=== PATIENT | male | born 1975 | race Caucasian/White ===

== ENCOUNTER 2016-12-23 20:06 | Emergency (ER) | payer BC ==
[2016-12-23] MEDS ORDERED: Sodium Chloride 0.9% 1,000 ML IV ONE (20:27)
[2016-12-23] MEDS ORDERED: Tamsulosin 0.4 MG Cap.ER PO ONE (20:28)
[2016-12-23 21:17] LABS: CHLORIDE,CL 103 mmol/L (98-107); SODIUM,NA 139 mmol/L (136-145)
[2016-12-23] MEDS ORDERED: Levofloxacin/Dextrose 5%-Water 750 MG in Premix Bag 1 BAG IV ONE (21:23)
--- NOTE | 2016-12-23 21:47 | EDM.PDOC ---
ED HISTORY OF PRESENT ILLNESS - General Chief Complaint: Fever Stated Complaint: Fever, chills, urinary postvoid dribbling Time Seen by Provider: 12/23/16 20:18 Source of Information: Reports: Patient History Limitations: Reports: No limitations - History of Present Illness INITIAL COMMENTS - FREE TEXT/NARRATIVE: Patient states that he started having fever and chills about a week ago. It has not gotten any better and continued to cause him more fatigue. He is currently in the middle of calving season and has not gotten much rest. He has not been exposed to the flu or get a flu vaccine. This season. He has also been complaining of post void urinary dribbling for the past week as well. He denies all other urinary complaints. Symptom Onset Date: 12/16/16 Severity: moderate Context, General: Reports: Activity, Exercise Associated Symptoms (General): Reports: fever/chills, malaise, weakness - Related Data Allergies/ADRs: Allergies Allergy/AdvReac Type Severity Reaction Status Date / Time No Known Allergies Allergy Verified 12/23/16 20:39 Home Meds: Home Meds Levofloxacin [Levaquin] 750 mg PO DAILY #6 tablet 12/23/16 [Rx] Tamsulosin [Flomax] 0.4 mg PO PCBREAKFAST #30 cap.er 12/23/16 [Rx] Past Medical History - Past Health History Medical/Surgical History: Denies Medical/Surgical History Social & Family History - Tobacco Use Smoking Status *Q: Never Smoker - Caffeine Use Caffeine Use: Reports: Soda ED ROS GENERAL - Review of Systems Review Of Systems: ROS reveals no pertinent complaints other than HPI. Constitutional: Reports: fever, malaise, weakness, fatigue HEENT: Reports: No symptoms Respiratory: Reports: Shortness of Breath Cardiovascular: Reports: No symptoms Endocrine: Reports: fatigue GI/Abdominal: Reports: No symptoms : Reports: incontinence Musculoskeletal: Reports: shoulder pain, arm pain, muscle pain (injury from getting his bicep torn after a cow ran through a gate he was holding onto.), muscle stiffness Skin: Reports: bruising Neurological: Reports: No Symptoms Psychiatric: Reports: No symptoms Hematologic/Lymphatic: Reports: no symptoms Immunologic: Reports: no symptoms ED EXAM, GENERAL - Physical Exam Exam: See Below Exam Limited By: No limitations General Appearance: alert, WD/WN, no apparent distress Nose: normal inspection, normal mucosa, no blood Throat/Mouth: Normal inspection, Normal lips, Normal teeth, Normal gums, Normal oropharynx, Normal voice, No airway compromise Head: atraumatic, normocephalic Neck: normal inspection, supple, non-tender, full range of motion Respiratory/Chest: no respiratory distress, lungs clear, normal breath sounds, no accessory muscle use, chest non-tender Cardiovascular: normal peripheral pulses, regular rate, rhythm, no edema, no gallop, no JVD, no murmur, no rub Peripheral Pulses: 2+: radial (L), radial (R) GI/Abdominal: normal bowel sounds, soft, non tender, no organomegaly, no distention, no abnormal bruit, no mass Back Exam: normal inspection, full range of motion, NT Extremities: normal inspection, normal range of motion, non-tender, no pedal edema, normal capillary refill Neurological: alert, oriented, CN II-XII intact, normal cognition, normal gait, normal reflexes, no motor/sensory deficits Psychiatric: normal affect, normal mood Skin Exam: Warm, Dry, Intact Lymphatic: no adenopathy Course - Vital Signs Last Recorded V/S: Last Vital Signs Temp 37.7 C 12/23/16 20:15 Pulse 111 H 12/23/16 20:15 Resp 16 12/23/16 20:15 BP 132/73 12/23/16 20:15 Pulse Ox 96 12/23/16 20:15 - Orders/Labs/Meds Orders: Active Orders 24 hr Category Date Time Status CXR [Chest 2V] [CR] Stat Exams 12/23/16 20:59 Ordered Levofloxacin/Dextrose 5%-Water [Levaquin in D5W 750 MG/ Med 12/23/16 21:23 Ordered 150 ML] 750 mg Premix Bag 1 bag IV ONETIME Medication Orders Levofloxacin/Dextrose 750 mg/ (Premix) 150 mls @ 100 mls/hr IV ONETIME ONE Stop: 12/23/16 22:52 Last Admin: 12/23/16 21:39 Dose: 100 mls/hr Labs: Laboratory Tests 12/23/16 12/23/16 12/23/16 Range/Units 20:20 20:35 20:35 WBC 17.4 H (4.0-10.0) x10^3/uL RBC 4.90 (4.5-6.0) x10^6/uL Hgb 14.8 (14.0-18.0) g/dL Hct 42.1 (40.0-52.0) % MCV 85.9 (78.0-93.0) fL MCH 30.2 (26.0-32.0) pg MCHC 35.2 (32.0-36.0) g/dL RDW Coeff of Bella 13.1 (10.0-15.0) % Plt Count 295 (130-400) x10^3/uL Neut % (Auto) 81.9 H (50.0-80.0) % Lymph % (Auto) 9.1 L (25.0-50.0) % [place] % (Auto) 8.4 (2.0-11.0) % Eos % (Auto) 0.4 (0.0-4.0) % Baso % (Auto) 0.2 (0.2-1.2) % Sodium 139 (136-145) mmol/L Potassium 3.6 (3.5-5.1) mmol/L Chloride 103 (98-107) mmol/L Carbon Dioxide 25 (21-32) mmol/L BUN 12 (7-18) mg/dL Creatinine 1.0 (0.70-1.30) mg/dL Est Cr Clr Drug Dosing 108.75 mL/min Estimated GFR (MDRD) > 60 Glucose 117 H (74-106) mg/dL Hemoglobin A1c (4.5-6.2) % Calcium 8.3 L (8.5-10.1) mg/dL Corrected Calcium 8.62 (8.5-10.1) mg/dL Total Bilirubin 0.7 (0.2-1.0) mg/dL AST 20 (15-37) U/L ALT 29 (16-63) U/L Alkaline Phosphatase 106 (46-116) U/L Total Protein 7.6 (6.4-8.2) g/dL Albumin 3.6 (3.4-5.0) g/dL Globulin 4.0 Albumin/Globulin Ratio 0.90 Urine Color Dark yellow H (YELLOW) Urine Appearance Slightly cloudy H (CLEAR) Urine pH 5.5 (5.0-8.0) Ur Specific [place] >=1.030 Urine Protein 100 H (NEGATIVE) mg/dL Urine Glucose (UA) Negative (NEGATIVE) mg/dL Urine Ketones 15 H (NEGATIVE) mg/dL Urine Occult Blood Large H (NEGATIVE) Urine Nitrite Negative (NEGATIVE) Urine Bilirubin Small H (NEGATIVE) Urine Urobilinogen 0.2 (0.2) EU/dL Ur Leukocyte Esterase Negative (NEGATIVE) Urine RBC 10-20 H (NOT SEEN) /HPF Urine WBC 0-5 (NOT SEEN) /HPF Ur Squamous Epith Cells Not seen (NEGATIVE) /HPF Urine Bacteria Moderate H (NEGATIVE) /HPF Urine Mucus Moderate H (NEGATIVE) /LPF 12/23/16 Range/Units 20:35 WBC (4.0-10.0) x10^3/uL RBC (4.5-6.0) x10^6/uL Hgb (14.0-18.0) g/dL Hct (40.0-52.0) % MCV (78.0-93.0) fL MCH (26.0-32.0) pg MCHC (32.0-36.0) g/dL RDW Coeff of Bella (10.0-15.0) % Plt Count (130-400) x10^3/uL Neut % (Auto) (50.0-80.0) % Lymph % (Auto) (25.0-50.0) % [place] % (Auto) (2.0-11.0) % Eos % (Auto) (0.0-4.0) % Baso % (Auto) (0.2-1.2) % Sodium (136-145) mmol/L Potassium (3.5-5.1) mmol/L Chloride (98-107) mmol/L Carbon Dioxide (21-32) mmol/L BUN (7-18) mg/dL Creatinine (0.70-1.30) mg/dL Est Cr Clr Drug Dosing mL/min Estimated GFR (MDRD) Glucose (74-106) mg/dL Hemoglobin A1c 5.4 (4.5-6.2) % Calcium (8.5-10.1) mg/dL Corrected Calcium (8.5-10.1) mg/dL Total Bilirubin (0.2-1.0) mg/dL AST (15-37) U/L ALT (16-63) U/L Alkaline Phosphatase (46-116) U/L Total Protein (6.4-8.2) g/dL Albumin (3.4-5.0) g/dL Globulin Albumin/Globulin Ratio Urine Color (YELLOW) Urine Appearance (CLEAR) Urine pH (5.0-8.0) Ur Specific [place] Urine Protein (NEGATIVE) mg/dL Urine Glucose (UA) (NEGATIVE) mg/dL Urine Ketones (NEGATIVE) mg/dL Urine Occult Blood (NEGATIVE) Urine Nitrite (NEGATIVE) Urine Bilirubin (NEGATIVE) Urine Urobilinogen (0.2) EU/dL Ur Leukocyte Esterase (NEGATIVE) Urine RBC (NOT SEEN) /HPF Urine WBC (NOT SEEN) /HPF Ur Squamous Epith Cells (NEGATIVE) /HPF Urine Bacteria (NEGATIVE) /HPF Urine Mucus (NEGATIVE) /LPF Meds: Medications Generic Name Dose Route Start Last Admin Trade Name Freq PRN Reason Stop Dose Admin Levofloxacin/Dextrose 750 mg/ 150 mls @ 100 mls/hr 12/23/16 21:23 12/23/16 21 :39 Premix IV 12/23/16 22:52 100 mls/hr ONETIME ONE Administration Discontinued Medications Generic Name Dose Route Start Last Admin Trade Name Freq PRN Reason Stop Dose Admin Sodium Chloride 1,000 mls @ 999 mls/hr 12/23/16 20:27 12/23/16 20:34 Normal Saline IV 12/23/16 21:27 999 mls/hr .BOLUS ONE Administration Tamsulosin HCl 0.4 mg 12/23/16 20:28 12/23/16 20:34 Flomax PO 12/23/16 20:29 0.4 mg ONETIME ONE Administration - Radiology Interpretation Free Text/Narrative:: No acute process seen on CXR. Departure - Departure Time of Disposition: 23:00 Disposition: Home, Self-Care 01 Condition: good Clinical Impression: Pneumonia Qualifiers: Pneumonia type: due to unspecified organism Laterality: unspecified laterality Lung location: unspecified part of lung Qualified Code(s): J18.9 - Pneumonia, unspecified organism UTI (urinary tract infection) Qualifiers: Urinary tract infection type: acute cystitis Hematuria presence: with hematuria Qualified Code(s): N30.01 - Acute cystitis with hematuria Forms: ED Department Discharge Additional Instructions: Please follow up with your primary care provider if you are not feeling any better with in 3-4 days. Get plenty of rest and drink plenty of water. - My Orders Last 24 Hours: My Active Orders 12/23/16 20:59 CXR [Chest 2V] [CR] Stat 12/23/16 21:23 Levofloxacin/Dextrose 5%-Water [Levaquin in D5W 750 MG/150 ML] 750 mg Premix Bag 1 bag IV ONETIME - Assessment/Plan Last 24 Hours: My Active Orders 12/23/16 20:59 CXR [Chest 2V] [CR] Stat 12/23/16 21:23 Levofloxacin/Dextrose 5%-Water [Levaquin in D5W 750 MG/150 ML] 750 mg Premix Bag 1 bag IV ONETIME Assessment:: Pneumonia Acute cystitis Prostate hyperplasia with postvoid dribbling Plan: Prescription medication as directed and follow up with your primary care provider if you are feeling no better in 3-4 days.
[2016-12-24 01:29] VITALS: BP 128/78
== END 2016-12-23 23:20 | disposition home or self-care (01) ==
LOC: VM.ED 20:06
DX: J18.9 Pneumonia, unspecified organism (principal); N30.01 Acute cystitis with hematuria
CPT/HCPCS: 71020; 80053; 81001; 83036; 85025; 96361; 96365; 96366; 99283; A9270; J1956; J7030

== ENCOUNTER 2021-04-09 13:34 | Emergency (ER) | payer BC ==
[2021-04-09] MEDS: HYDROmorphone 1 MG/ML Syringe SUBCUT ONE ×2 (14:23→16:15)
--- NOTE | 2021-04-09 15:33 | CR ---
[id number] RAD/RAD Pelvis 1V W 2V Right Hip Exam: RAD Pelvis 1V W 2V Right Hip Clinical Data: RIGHT HIP PAIN COMPARISON: NO PREVIOUS SIMILAR EXAM IS AVAILABLE FINDINGS: No fracture or dislocation is identified Consider MRI IMPRESSION: NEGATIVE PLAIN FILM EXAM Micahel Hills MD 04/09/21 [id number] Thank you for allowing us to participate in the care of your patient.
--- NOTE | 2021-04-09 16:10 | EDM.PDOC ---
ED HPI GENERAL MEDICAL PROBLEM - General Stated Complaint: MUSCLE SPASM right groin pain Time Seen by Provider: 04/09/21 14:02 Source of Information: Reports: Patient History Limitations: Reports: No Limitations - History of Present Illness INITIAL COMMENTS - FREE TEXT/NARRATIVE: Patient is a [place]. States a few days ago he had a confrontation with a few calves and then spent the day on a very bumpy tractor. He started to have right groin pain and back pain so went to the chiropractor. He states his back improved but not able to make the groin pain better. He states he can kneel without problems but rotation of the hip and full rom is painful to the point he would rather crawl. No previous injury. NV intact distally. No loss of bowel or bladder. Denies any masses into the groin or the scrotum. Duration: Day(s):, Getting Worse Location: Reports: Lower Extremity, Right Quality: Reports: Stabbing Severity: Severe Worsens with: Reports: Movement Right Hip Pain Score (Numeric/FACES): 6 - Related Data Allergies Allergy/AdvReac Type Severity Reaction Status Date / Time No Known Allergies Allergy Verified 04/09/21 18:03 Home Meds: Home Meds Hydrocodone/Acetaminophen [Hydrocodone-Acetamin 10-325 mg] 1 each PO Q4HR #20 tablet 04/09/21 [Rx] diazePAM [Valium] 10 mg PO Q8HR PRN #15 tablet 04/09/21 [Rx] Past Medical History - Past Health History Medical/Surgical History: Denies Medical/Surgical History Social & Family History - Caffeine Use Caffeine Use: Reports: Soda ED ROS GENERAL - Review of Systems Review Of Systems: See Below Constitutional: Reports: No Symptoms HEENT: Reports: No Symptoms Respiratory: Reports: No Symptoms Cardiovascular: Reports: No Symptoms Endocrine: Reports: No Symptoms GI/Abdominal: Reports: No Symptoms : Reports: No Symptoms Musculoskeletal: Reports: Joint Pain (right groin), Other (problems walking) Skin: Reports: No Symptoms ED EXAM, GENERAL - Physical Exam Exam: See Below Exam Limited By: No Limitations General Appearance: Alert, WD/WN, Moderate Distress Eye Exam: Bilateral Eye: EOMI, PERRL Ears: Normal External Exam Throat/Mouth: Normal Inspection, Normal Voice Head: Atraumatic Neck: Supple, Full Range of Motion Respiratory/Chest: No Respiratory Distress, Normal Breath Sounds Cardiovascular: Regular Rate, Rhythm Back Exam: Normal Inspection, Full Range of Motion, Other (can flex at the waist, no lesions or rashes. no pain to palpation of the si joints or greater trochanters. ). No: CVA Tenderness (L), CVA Tenderness (R), Decreased Range of Motion, Muscle Spasm, Paraspinal Tenderness, Vertebral Tenderness Extremities: Normal Inspection, No Pedal Edema, Normal Capillary Refill, Other (normal strength bilat lower with knee ext, flexion, foot dorsi and plantar flexion. Increased pain in hip flexion on the right. No muscle spasm noted. NV distally. increased pain with internal and external rotation of the right hip difficulty with gait due to pain) Neurological: Alert, Oriented Course - Vital Signs Last Recorded V/S: Last Vital Signs Temp 36.7 C 04/09/21 15:25 Pulse 65 04/09/21 16:25 Resp 16 04/09/21 16:25 BP 125/80 04/09/21 16:25 Pulse Ox 98 04/09/21 16:25 - Orders/Labs/Meds Meds: Medications Discontinued Medications Generic Name Dose Route Start Last Admin Trade Name Freq PRN Reason Stop Dose Admin Diazepam 5 mg 04/09/21 14:01 04/09/21 14:29 Diazepam 10 Mg/2 Ml Syringe IM 04/09/21 14:02 5 mg ONETIME ONE Administration Diazepam 5 mg 04/09/21 15:55 04/09/21 16:16 Diazepam 10 Mg/2 Ml Syringe IM 04/09/21 15:56 5 mg ONETIME ONE Administration Hydromorphone HCl 1 mg 04/09/21 14:01 04/09/21 14:23 Hydromorphone 1 Mg/Ml Syringe SUBCUT 04/09/21 14:02 1 mg ONETIME ONE Administration Hydromorphone HCl 2 mg 04/09/21 15:55 04/09/21 16:15 Hydromorphone 1 Mg/Ml Syringe SUBCUT 04/09/21 15:56 2 mg ONETIME ONE Administration - Radiology Interpretation Free Text/Narrative:: pelvis and right hip x-ray with no acute abnormality, interpreted by radiology - Re-Assessments/Exams Free Text/Narrative Re-Assessment/Exam: 04/09/21 given valium 5 mg IM, and dialudid 1 mg IM initially. get x-ray x-ray negative. Meds helped some. repeat diluudid 2 mg IM and valium 5 mg IM. Advised meds at home, follow up with PCP, chiropractor. consider MRI for continued pain. briefly discussed labral tears. Departure - Departure Time of Disposition: 16:02 Disposition: Home, Self-Care 01 Clinical Impression: Hip pain, right - Discharge Information *PRESCRIPTION DRUG MONITORING PROGRAM REVIEWED*: Not Applicable *COPY OF PRESCRIPTION DRUG MONITORING REPORT IN PATIENT ELISABET: Not Applicable Prescriptions: Hydrocodone/Acetaminophen [Hydrocodone-Acetamin 10-325 mg] 1 each PO Q4HR #20 tablet diazePAM [Valium] 10 mg PO Q8HR PRN #15 tablet PRN Reason: Spasms Instructions: Hip Pain Referrals: PCP,None [Primary Care Provider] - Forms: ED Department Discharge Additional Instructions: use the pain medication ( hydrocodone) one every 4-6 hours as needed for pain. Use the valium one every 8 hours as needed for muscle spasm. Follow up with pcp for possible MRI. This medication will cause constipation. return as needed for pain not controlled Sepsis Event Note (ED) - Focused Exam Vital Signs: Vital Signs Temp Pulse Resp BP Pulse Ox 04/09/21 16:25 65 16 125/80 98 04/09/21 15:25 36.7 C 62 16 127/89 98 04/09/21 14:14 36.7 C 63 16 137/75 97
[2021-04-09 18:05] VITALS: BP 125/80; PULSE 65
== END 2021-04-09 16:25 | disposition home or self-care (01) ==
LOC: VM.ED 13:34
DX: M25.551 Pain in right hip (principal); R10.31 Right lower quadrant pain
CPT/HCPCS: 96372; 99283; 99283-25; J1170; J3360

== ENCOUNTER 2021-04-18 21:31 | Emergency (ER) | payer OTHER, BC ==
[2021-04-18] MEDS ORDERED: HYDROmorphone 1 MG/ML Syringe IVPUSH ONE ×2 (21:45→23:31)
[2021-04-18] MEDS ORDERED: Ondansetron 4 MG/2 ML SDV IVPUSH ONE (21:45)
[2021-04-18 22:26] LABS: CHLORIDE,CL 104 mmol/L (98-107); SODIUM,NA 140 mmol/L (136-145)
[2021-04-18 22:28] LABS: ANION GAP 13.9 mmol/L (5-15)
--- NOTE | 2021-04-18 23:05 | EDM.PDOC ---
ED HPI GENERAL MEDICAL PROBLEM - General Stated Complaint: BUCKED OFF HORSE Time Seen by Provider: 04/18/21 21:31 Source of Information: Reports: Patient History Limitations: Reports: No Limitations - History of Present Illness INITIAL COMMENTS - FREE TEXT/NARRATIVE: Pt. presents to ER with equine accident. Pt. states that he was thrown from a horse who fell onto his face. Pt. states that he had no LOC and recalls the entire event. Pt. states that he is not experiencing any neck pain or shortness of breath. Pt. states that he was bleeding heavily from both nares initially. He was diaphoretic. Denies denies any chest pain or shortness of breath. No abdominal pain. Pt. complains of some pelvic pain from previous injury but states that it is not any worse than previous. He was able to ambulate on his own. Denies any numbness/tingling in extremities. Onset: Today Onset Date: 04/18/21 Location: Reports: Head, Face Quality: Reports: Ache Severity: Severe Improves with: Reports: Rest Worsens with: Reports: Movement Associated Symptoms: Reports: Diaphoresis - Related Data Allergies Allergy/AdvReac Type Severity Reaction Status Date / Time No Known Allergies Allergy Verified 04/09/21 18:03 Home Meds: Home Meds Hydrocodone/Acetaminophen [Hydrocodone-Acetamin 10-325 mg] 1 each PO Q4HR #20 tablet 04/09/21 [Rx] diazePAM [Valium] 10 mg PO Q8HR PRN #15 tablet 04/09/21 [Rx] Past Medical History - Past Health History Medical/Surgical History: Denies Medical/Surgical History Social & Family History - Family History Family Medical History: Unobtainable - Caffeine Use Caffeine Use: Reports: None ED ROS GENERAL - Review of Systems Review Of Systems: See Below Constitutional: Reports: No Symptoms HEENT: Reports: Nosebleed, Nose Pain Respiratory: Reports: No Symptoms Cardiovascular: Reports: No Symptoms Endocrine: Reports: No Symptoms GI/Abdominal: Reports: No Symptoms : Reports: No Symptoms Musculoskeletal: Reports: No Symptoms Skin: Reports: No Symptoms Neurological: Reports: No Symptoms Psychiatric: Reports: No Symptoms Hematologic/Lymphatic: Reports: No Symptoms Immunologic: Reports: No Symptoms ED EXAM, GENERAL - Physical Exam Exam: See Below Exam Limited By: No Limitations General Appearance: Alert, WD/WN, No Apparent Distress Eye Exam: Bilateral Eye: EOMI, Other (No obvious entrapment. Significant periorbital ecchymosis/hematoma noted bilaterally.) Ears: Normal External Exam, Normal Canal, Hearing Grossly Normal, Normal TMs Ear Exam: Bilateral Ear: Auricle Normal, Canal Normal, TM normal Nose: Nasal Deformity, Nasal Swelling, Other (Minimal active epistaxis on arrival epistaxis. Nares are filled with clots. Severe facial swelling) Throat/Mouth: Normal Teeth, Normal Voice, No Airway Compromise Head: Facial Swelling, Facial Tenderness, Sinus Tenderness, Other (Abrasions, contusion to forhead, midface. No obvious midface crepitus noted.) Neck: Normal Inspection, Supple, Non-Tender, Full Range of Motion Respiratory/Chest: No Respiratory Distress, Lungs Clear, Normal Breath Sounds, No Accessory Muscle Use, Chest Non-Tender Cardiovascular: Normal Peripheral Pulses, Regular Rate, Rhythm, No Edema, No JVD, No Murmur Peripheral Pulses: 4+: Radial (L) GI/Abdominal: Normal Bowel Sounds, Soft, Non-Tender, No Organomegaly, No Distention, No Mass (Male) Exam: Deferred Rectal (Males) Exam: Deferred Back Exam: Normal Inspection, Full Range of Motion Extremities: Normal Inspection, Normal Range of Motion, Non-Tender, No Pedal Edema, Normal Capillary Refill Neurological: Alert, Oriented, CN II-XII Intact, Normal Cognition, Normal Gait, Normal Reflexes, No Motor/Sensory Deficits Psychiatric: Normal Affect, Normal Mood #1 Interpretation Rhythm: NSR [place]: Normal P-Wave: Present QRS: Normal ST-T: Normal QT: Normal Course - Orders/Labs/Meds Orders: Active Orders 24 hr Category Date Time Status EKG Documentation Completion [RC] STAT Care 04/18/21 21:44 Active Vaccines to be Administered [RC] PER UNIT ROUTINE Care 04/18/21 23:20 Ordered Cervical Spine wo Cont [CT] Stat Exams 04/18/21 21:43 Ordered Chest 1V Frontal [CR] Stat Exams 04/18/21 21:41 Ordered Chest Abdomen Pelvis wo Cont [CT] Stat Exams 04/18/21 21:46 Ordered Head wo Cont [CT] Stat Exams 04/18/21 21:42 Ordered Max Facial Sinus wo Cont [CT] Stat Exams 04/18/21 21:42 Ordered Blood Alcohol [ETHANOL BLOOD MEDICAL] [CHEM] Stat Lab 04/18/21 21:44 Ordered CBC WITH AUTO DIFF [HEME] Stat Lab 04/18/21 21:44 Ordered COMPREHENSIVE METABOLIC PN,CMP [CHEM] Stat Lab 04/18/21 21:44 Ordered INR,PT,PROTHROMBIN TIME [COAG] Stat Lab 04/18/21 21:43 Ordered TROPONIN I HIGH SENSITIVITY [CHEM] Stat Lab 04/18/21 21:49 Ordered UA W/MICROSCOPIC [URIN] Stat Lab 04/18/21 21:44 Ordered Ampicillin/Sulbactam Na [Unasyn] Med 04/18/21 23:14 Once 3 gm IVPUSH ONETIME ONE Diphth,Pertuss(Acell),Tet Vac [Boostrix] Med 04/18/21 23:19 Once 0.5 ml IM .ONCE ONE HYDROmorphone [Dilaudid] Med 04/18/21 21:45 Once 1 mg IVPUSH ONETIME ONE Ondansetron [Zofran] Med 04/18/21 21:45 Once 4 mg IVPUSH ONETIME ONE - Radiology Interpretation Free Text/Narrative:: CT cervical spine obtained, negative for acute fracture. CT brain obtained, no intracranial pathology noted. Pt. has extensive midface and nasal fracture (leFort 3 on right and le[place] [address] chest, abdomen and pelvis with contast obtained. Unfortunately, the tech only performed the abdomen and pelvis. No intrabdominal or pelvic pathology noted. Departure - Departure Time of Disposition: 23:18 Disposition: DC/Tfer to [facility] 02 Clinical Impression: Facial trauma - Discharge Information Referrals: PCP,None [Primary Care Provider] - Forms: Interfacility Transfer EMTALA - Problem List Review Problem List Initiated/Reviewed/Updated: Yes - My Orders Last 24 Hours: My Active Orders 04/18/21 21:41 Chest 1V Frontal [CR] Stat 04/18/21 21:42 Head wo Cont [CT] Stat Max Facial Sinus wo Cont [CT] Stat 04/18/21 21:43 Cervical Spine wo Cont [CT] Stat INR,PT,PROTHROMBIN TIME [COAG] Stat 04/18/21 21:44 EKG Documentation Completion [RC] STAT Blood Alcohol [ETHANOL BLOOD MEDICAL] [CHEM] Stat CBC WITH AUTO DIFF [HEME] Stat COMPREHENSIVE METABOLIC PN,CMP [CHEM] Stat UA W/MICROSCOPIC [URIN] Stat 04/18/21 21:45 HYDROmorphone [Dilaudid] 1 mg IVPUSH ONETIME ONE Ondansetron [Zofran] 4 mg IVPUSH ONETIME ONE 04/18/21 21:46 Chest Abdomen Pelvis wo Cont [CT] Stat 04/18/21 21:49 TROPONIN I HIGH SENSITIVITY [CHEM] Stat 04/18/21 23:14 Ampicillin/Sulbactam Na [Unasyn] 3 gm IVPUSH ONETIME ONE 04/18/21 23:19 Diphth,Pertuss(Acell),Tet Vac [Boostrix] 0.5 ml IM .ONCE ONE 04/18/21 23:20 Vaccines to be Administered [RC] PER UNIT ROUTINE - Assessment/Plan Admission H&P: Please use this note as an admission H&P Last 24 Hours: My Active Orders 04/18/21 21:41 Chest 1V Frontal [CR] Stat 04/18/21 21:42 Head wo Cont [CT] Stat Max Facial Sinus wo Cont [CT] Stat 04/18/21 21:43 Cervical Spine wo Cont [CT] Stat INR,PT,PROTHROMBIN TIME [COAG] Stat 04/18/21 21:44 EKG Documentation Completion [RC] STAT Blood Alcohol [ETHANOL BLOOD MEDICAL] [CHEM] Stat CBC WITH AUTO DIFF [HEME] Stat COMPREHENSIVE METABOLIC PN,CMP [CHEM] Stat UA W/MICROSCOPIC [URIN] Stat 04/18/21 21:45 HYDROmorphone [Dilaudid] 1 mg IVPUSH ONETIME ONE Ondansetron [Zofran] 4 mg IVPUSH ONETIME ONE 04/18/21 21:46 Chest Abdomen Pelvis wo Cont [CT] Stat 04/18/21 21:49 TROPONIN I HIGH SENSITIVITY [CHEM] Stat 04/18/21 23:14 Ampicillin/Sulbactam Na [Unasyn] 3 gm IVPUSH ONETIME ONE 04/18/21 23:19 Diphth,Pertuss(Acell),Tet Vac [Boostrix] 0.5 ml IM .ONCE ONE 04/18/21 23:20 Vaccines to be Administered [RC] PER UNIT ROUTINE Plan: Pt. L nare was packed with a 7.5 cm anterior/posterior rapid rhino device after he experienced significant hematemesis (approx. 350ml) when he returned from CT. Unable to pass though R nare. Pt. continued to vomit small amounts of blood. Pt. will be transferred to [facility] as a trauma patient. Pt. was given 3 gm of unasyn IV. Dr. Groves accepts the patient in transfer. He will be transferred via [facility] ground ambulance.
[2021-04-18] MEDS ORDERED: Ampicillin/Sulbactam Na 3 GM Vial IVPUSH ONE (23:14)
[2021-04-18] MEDS ORDERED: Diphtheria,Pertussis(Acell),Tetanus Vaccine 0.5 ML Syringe IM ONE (23:19)
--- NOTE | 2021-04-19 08:08 | CR ---
[id number] RAD/RAD Chest Portable EXAM: PORTABLE CHEST RADIOGRAPH. INDICATION: TRAUMA COMPARISON: No previous similar exam is available for comparison. FINDINGS: The lungs are clear. The cardiomediastinal contour is normal. The regional bones and soft tissues are unremarkable. There is no pneumothorax. IMPRESSION: NO ACUTE PROCESS. Michael Hills MD 04/19/21 [phone] Thank you for allowing us to participate in the care of your patient.
--- NOTE | 2021-04-19 08:15 | CT ---
[id number] CT/CT Cervical Spine WO IV Exam: CT Cervical Spine WO IV Clinical Data: TRAUMA COMPARISON: NO PREVIOUS SIMILAR EXAM IS AVAILABLE FINDINGS: No fracture or subluxation of the cervical spine is seen The cervical spine imaging is limited There are degenerative changes involving the lower cervical spine Completion of the study is suggested IMPRESSION: NO FRACTURE OR SUBLUXATION IDENTIFIED LIMITED EXAM Michael Hills MD 04/19/21 0814 Thank you for allowing us to participate in the care of your patient.
--- NOTE | 2021-04-19 08:15 | CT ---
[id number] CT/CT Head WO IV EXAM: CT Head WO IV CLINICAL DATA: TRAUMA COMPARISON: No previous similar exam is available for comparison. FINDINGS: A LeFort III facial fracture pattern is seen There is no mass or mass effect. There is no hemorrhage or hydrocephalus. There are no extra-axial fluid collections. There are no sites of abnormal attenuation. IMPRESSION: LEFORT III FACIAL FRACTURE PATTERN NO PLAIN CT EVIDENCE OF ACUTE INTRACRANIAL PROCESS. Michael Hills MD 04/19/21 0814 Thank you for allowing us to participate in the care of your patient.
--- NOTE | 2021-04-19 08:19 | CT ---
[id number] CT/CT Facial Bones WO IV Exam: CT Facial Bones WO IV Clinical Data: TRAUMA COMPARISON: NO PREVIOUS SIMILAR EXAM IS AVAILABLE FINDINGS: Multiple facial fractures are seen corresponding to a LeFort III classification overall There is a wide depressed right orbital floor fracture There are bilateral zygomatic arch fractures There are bilateral maxillary sinus fractures There are bilateral pterygoid plate fractures There are bilateral fractures of the lateral orbital sherwood Report provided at time of exam IMPRESSION: LEFORT III FRACTURE PATTERN Michael Hills MD 04/19/21 0818 Thank you for allowing us to participate in the care of your patient.
--- NOTE | 2021-04-19 08:25 | CT ---
[id number] CT/CT Chest Abdomen Pelvis WO IV Exam: CT Abdomen Pelvis WO IV Clinical Data: TRAUMA COMPARISON: NO PREVIOUS SIMILAR EXAM IS AVAILABLE FINDINGS: Imaging was limited to the abdomen and pelvis with IV contrast Chest imaging was not performed or made available to this radiologist The liver and spleen, kidneys and adrenals, pancreas and aorta are unremarkable There is no fracture identified There are degenerative changes of the cervical spine The pelvis shows no mass, adenopathy, or fluid collections There is soft tissue edema posterior to the right gluteal region IMPRESSION: NO ACUTE INTRA-ABDOMINAL OR PELVIC VISCERAL INJURY Michael Hills MD 04/19/21 [id number] Thank you for allowing us to participate in the care of your patient.
== END 2021-04-18 23:55 | disposition short-term general hospital (02) ==
LOC: VM.ED 21:31
DX: S05.12XA Contusion of eyeball and orbital tissues, left eye, initial encounter (principal); S05.11XA Contusion of eyeball and orbital tissues, right eye, initial encounter; R04.0 Epistaxis; Z23 Encounter for immunization; V80.919A Animal-rider injured in unspecified transport accident, initial encounter; Y93.52 Activity, horseback riding
CPT/HCPCS: 30903; 70450; 70486; 71045; 72125; 74177; 80053; 80307; 84484; 85025; 85610; 90471; 90715; 93005; 93010; 96374; 96375; 96376; 99284; 99285-25; J0295; J1170; J2405

== ENCOUNTER 2025-06-02 10:44 | Day surgery (SDC) | payer BC ==
[2025-06-02] MEDS: Lactated Ringers 1,000 ML IV SCH (10:57)
[2025-06-02] MEDS ORDERED: Propofol 200 MG/20 ML SDV ONE ×3 (11:56→13:17)
[2025-06-02] MEDS ORDERED: Midazolam 1 MG/ML 2 ML SDV ONE (11:56)
[2025-06-02] MEDS ORDERED: fentaNYL 100 MCG/2 ML SDV ONE (11:57)
[2025-06-02 13:39] VITALS: BP 102/61; PULSE 64
== END 2025-06-02 13:59 | disposition home or self-care (01) ==
LOC: VM.SDS 10:44
PROVIDERS: ATTEND Family Medicine
DX: Z12.11 Encounter for screening for malignant neoplasm of colon (principal); D12.2 Benign neoplasm of ascending colon; D12.3 Benign neoplasm of transverse colon; D12.4 Benign neoplasm of descending colon; D12.5 Benign neoplasm of sigmoid colon; E66.3 Overweight; Z68.29 Body mass index [BMI] 29.0-29.9, adult; Z87.891 Personal history of nicotine dependence; Z79.899 Other long term (current) drug therapy
CPT/HCPCS: 00811; J2250; J2704; J3010; J7120